=== PATIENT | female | born 1970 | race African-American/Black ===

== ENCOUNTER 2024-03-19 18:30 | Emergency (ER) | payer BC, SELFPAY ==
--- OUTSIDE RECORDS SUMMARY | 2024-03-19 18:33 | XMS REPORT | Continuity of Care Document ---
Author Name Unknown Address [address] [facility]. [address] [place] [address] [facility] Address [address] [facility] [place] [address] Care Team Providers Care Plastic Sheets Supervisor Name Role Phone ZENA TUCKER Primary Care Physician Jeffry Patel Attending Clinician JEFFRY COMER Attending Clinician Unavailable Unknown, Attending Attending Clinician Unavailab neris SMITH_GCBZW_Ross_Ana Attending Clinician Aminah Monsivais K Attending Clinician UnavailZENA Rodriguez Attending Clinician Unavailable Zena Tucker Attending Clinician [phone] Ismael Pruett Attending Clinician Unavail able STACY ANDREW Attending Clinician Un available NORMAN MITCHELL Attending Clinician Unavail able JAELYN FRAZIER Attending Clinician Unav ailable GC_GCBZW_Kadiyala_S Admitting Clinician Unavaila Aminah Chavez Admitting Clinician Unavaila ZENA Bishop Admitting Clinician Josey James Admitting Clinician Unavaila pietro Payers Payer Name Policy Type Policy Number Effective Date Expirati on Date Source Problems Condition Name Condition Details Condition Category Status Onset Date Resolution Date Last Treatment Date Treating Clinician Comments Source Morbid obesity with body mass index of 40.0-49.9 Morbid obesity with body mass index of 40.0-49.9 Disease Recurre nce 06-08 00:00: 00 [facility] Morbid obesity with body mass index of 50 or higher Morbid obesity with body mass index of 50 or higher Disease Active 06-08 00:00: 00 [facility] Allergies, Adverse Reactions, Alerts Allergy Name Allergy Type Status Severity Reaction(s) Onset Date Inactive Date Treating Clinician Comments Source No Known Allergie s DA Active U 2015-04 00:00: 00 [facility] NO KNOWN ALLERGIE S Drug Class Active [facility] Social History Social Habit Start Date Stop Date Quantity Comments Source [facility] function 2023-10-15 00:00:00 2023-10-15 00:00:00 [facility] Exposure to SARS-CoV-2 (event) 2021-06-15 00:00:00 2021-07-15 16:37:00 Not sure [facility] Sex assigned at 1970 00:00:00 1970 00:00:00 [facility] Smoking Status Start Date Stop Date Source Never smoked tobacco [facility] Medications Ordered Medication Name Filled Medication Name Start Date Stop Date Current Medication? Ordering Clinician Indication Dosage Frequency Signature (SIG) Comments Components Source ketorolac (TORADOL) injection 30 mg 10-14 22:10: 00 10-14 22:32 :00 No [id number] 30mg 30 mg, Intramuscu lar, ONCE, 1 dose, On 10/15/23 at 1715, Routine [facility] naproxen 500 mg tablet 10-14 00:00: 00 10-25 04:59 :00 No [id number] 500mg Take 1 tablet by mouth 2 (two) times daily with meals as needed for Pain (scale 4-6) for up to 10 days. [facility] ketorolac 10 mg tablet 10-05 00:00: 00 10-14 00:00 :00 No 10mg Take 1 tablet by mouth every 6 (six) hours as needed for Pain (scale 1-3). [facility] ondansetron (ZOFRAN ODT) 4 mg disintegrat ing tablet 10-05 00:00: 00 10-14 00:00 :00 No 4mg Take 1 tablet by mouth every 8 (eight) hours as needed for Nausea and Vomiting (N/V). [facility] cephALEXin (KEFLEX) 500 mg capsule 10-05 00:00: 00 10-14 00:00 :00 No 500mg Take 1 capsule by mouth 3 (three) times daily. [facility] methylPREDN ISolone 4 mg tablets 06-07 00:00: 00 10-14 00:00 :00 No 84mg Take 21 tablets by mouth SEE-INSTRU CTIONS. follow package directions [facility] traMADOL (ULTRAM) 50 mg tablet 2014-04 00:00: 00 10-14 00:00 :00 No 50mg Take 1 Tab by mouth every 6 (six) hours as needed for Pain (scale 4-6). [facility] Lisinopril, Bulk, 100 % Powd 01-17 23:37: 23 Yes [facility] Levothyroxi ne Sodium 100 % Powd 01-17 23:37: 23 Yes [facility] Lisinopril, Bulk, 100 % Powd 01-17 23:37: 23 Yes [facility] Levothyroxi ne Sodium 100 % Powd 01-17 23:37: 23 Yes [facility] Vital Signs Vital Name Observation Time Observation Value Comments Ana pulido Systolic blood pressure 2023-10-15 22:00:00 104 mm[Hg] [facility] Diastolic blood pressure 2023-10-15 22:00:00 75 mm[Hg] [facility] Heart rate 2023-10-15 22:00:00 86 /min [facility] Body temperature 2023-10-15 22:00:00 36.33 Ros [facility] Respiratory rate 2023-10-15 22:00:00 16 /min [facility] Body height 2023-10-15 22:00:00 160 cm [facility] Body weight 2023-10-15 22:00:00 97.523 kg [facility] BMI 2023-10-15 22:00:00 38.09 kg/m2 [facility] Oxygen saturation in Arterial blood by Pulse oximetry 2023-10-15 22:00:00 100 /min [facility] Procedures Procedure Date / Time Performed Performing Clinician Source XR KNEE 3 VW RIGHT 2023-10-15 22:31:26 Jeffry Comer [facility] XR HAND 3+ VW RIGHT 2023-10-15 22:25:27 Uriel Comer [facility] XR LUMBAR SPINE 3 VW 2021-12-29 15:23:00 Requisition, Paper [facility] XR CERVICAL SPINE 3 VW 2021-12-29 15:23:00 Requisition , Paper [facility] BI ULTRASOUND BREAST COMPLETE BILATERAL 2021-09-29 13:58:51 Requisition, Paper [facility] PATIENT FINANCIAL POLICY 2021-08-14 14:22:00 Doctor Unassigned, [place] [facility] NO SHOW OR MISSED APPOINTMENT POLICY ACKNOWLEDGEMENT 2021-08-14 14:21:40 Doctor Unassigned, [place] [facility] CONSENT/REFUSAL FOR DIAGNOSIS AND TREATMENT 2021-08-14 14:21:11 Doctor Unassigned, [place] [facility] ASSIGNMENT OF BENEFITS 2021-08-14 14:20:49 Docto r Unassigned, [place] [facility] Encounters Start Date/Time End Date/Time Encounter Type Admission Type Attending [facility] Facility Care Department Encounter ID Source 2023-10-15 17:11:58 2023-10-15 23:59:00 Hospital Encounter Jeffry Com[facility] [id number] [facility] 2023-10-15 17:11:58 2023-10-15 23:59:00 Outpatient R JEFFRY COMER [facility] [id number] [facility] 2023-10-15 17:11:58 2023-10-15 23:59:00 [facility] [id number] [id number] [facility] 2023-10-15 17:00:00 2023-10-15 17:22:12 Urgent Care Jeffry Comer Unknown, Attending [facility] [id number] [id number] [id number] [facility] 2023-02-23 00:00:00 2023-02-23 00:00:00 Outpatient GC_GCBZW_Ka donna_S [facility] [id number] [facility] 2022-01-21 12:56:00 2022-01-21 20:50:00 Inpatient KELLY Tigiststevegera Aminah [facility] MEDI.01 [id number] 97 [facility] 2021-12-29 09:55:07 2021-12-29 23:59:00 Outpatient R ZENA TUCKER [facility] [id number] [facility] 2021-12-29 09:55:07 2021-12-29 23:59:00 Hospital Encounter Zena Tucker [facility] [id number] [id number] [id number] [id number] [facility] 2021-10-12 18:56:00 2021-10-12 19:40:00 Emergency Ismael Levi [facility] LUISA [id number] [facility] 2021-10-12 18:56:00 2021-10-12 19:40:00 Emergency Ismael Levi [facility] [id number] [facility] 2021-10-12 17:27:00 2021-10-12 18:25:00 Emergency Alma Rosa [facility] [id number] [facility] 2021-09-29 07:37:57 2021-09-29 23:59:00 Outpatient ZENA [facility] RAD [id number] [facility] 2021-09-29 07:37:57 2021-09-29 23:59:00 Hospital Encounter [facility] [id number] [id number] [id number] [facility] 2021-08-14 09:21:57 2021-08-14 23:59:00 Outpatient R ZENA TUCKER [facility] [id number] [facility] 2021-08-14 09:21:57 2021-08-14 23:59:00 Hospital Encounter [facility] 1..840.114 [id number] [id number] [id number] [facility] 2021-04-30 23:32:00 2021-05-01 00:41:00 Emergency E [facility] [address] [facility] 2020-05-14 16:21:00 2020-05-14 18:25:00 Emergency E JAELYN FRAZIER [facility] [address] [facility] Results Test Description Test Time Test Comments Results Result Comments Source XR HAND 3+ VW RIGHT 00:46:11 ORDERING PROVIDER: JEFFRY COMER HISTORY: right hand injury TECHNIQUE: ?3 views of the right hand COMPARISON: None FINDINGS: No acute fracture or dislocation. [facility] XR KNEE 3 VW RIGHT 00:41:35 ORDERING PROVIDER: JEFFRY COMER HISTORY: right knee injury TECHNIQUE: ?Frontal and lateral views of the right knee COMPARISON: None FINDINGS: No acute fracture or dislocation. Small knee joint effusion. Minimaldegenerative changes of the anterior and medial compartments. [facility] Urine Specimen Type: Clean CatchURINALYSIS [id number] 12:45:00* Test Item Value Reference Range Interpretation Comme nts UA GLUCOSE DIPSTICK (test code = DGLUU) NEGATIVE mg/dL NEG UA BILIRUBIN DIPSTICK (test code = BILU) NEGATIVE mg/dL NEG UA KETONE DIPSTICK (test code = KETU) NEGATIVE mg/dL NEG UA SPECIFIC GRAVITY (test code = SGU) 1.025 SG 1.005-1.030 UA BLOOD DIPSTICK (test code = BAKARI) 1+ mg/DL NEG A UA PH DIPSTICK (test code = FRANCOIS) 5.5 pH UNITS 5.0-7.0 UA PROTEIN DIPSTICK (test code = PROU) NEGATIVE mg/dL NEG UA UROBILINIOGEN DIPSTICK (test code = URO) 0.2 mg/dL <2.0 UA NITRITE DIPSTICK (test code = ASAEL) NEGATIVE SCREEN NEG UA LEUKOCYTE ESTERASE DIPSTICK (test code = LEUU) NEGATIVE Leuk/mcL NEGATIVE Urine Specimen Type: Clean CatchCOVID 19 INHOUSE [id number] 12:44:00* Test Item Value Reference Range Interpretation Comme nts COVID 19 INHOUSE AG (test code = [id number]) NEGATIVE Negative Per bill poster installer , negative results should be treated aspresumptive and, if inconsistent with clinical signs andsymptoms or necessary for patient management, should betested with an alternative molecular assay. Negative resultsdo not preclude SARS-CoV-2 infection and should not be usedas the sole basis for patient management decisions. Negative results should be considered in the context of apatient's recent exposures, history, presence of clinicalsigns and symptoms consistent with COVID-19. BASIC METABOLIC [id number] 12:33:00* Test Item Value Reference Range Interpretation Comme nts SODIUM (test code = NA) 140 mmol/L 134-147 N POTASSIUM (test code = K) 3.6 mmol/L 3.4-5.0 N CHLORIDE (test code = CL) 103 mmol/L 100-108 N CARBON DIOXIDE (test code = CO2) 29 mmol/L 21-32 N ANION GAP (test code = GAP) 8.0 GAP calc 4.0-15.0 N GLUCOSE (test code = GLU) 96 MG/DL 70-110 N BLOOD UREA NITROGEN (test code = BUN) 11 MG/DL 7-18 N GLOMERULAR FILTRATION RATE (test code = GFR) >=60 max estimate estGFR >60 CREATININE (test code = CREAT) 0.6 MG/DL 0.6-1.0 N CALCIUM (test code = CA) 9.0 MG/DL 8.5-10.1 N PROTHROMBIN [id number] 12:28:00* Test Item Value Reference Range Interpretation Comme nts PT PATIENT (test code = PTP) 11.7 SECONDS 9.3-12.9 N INTERNATIONAL NORMAL RATIO (test code = INR) 1.03 INR Unit 0.8-1.2 N TARGET INR BY INDICATION Indication INR1. Prophylaxis of venous thrombosis 2.0 - 3.0 (orthopedic surgery), Prophylaxis of venous thrombosis (other than high-risk surgery), Treatment of Deep Vein Thrombosis/Pulmonary Embolism, Prevention of systemic embolism - Tissue heart valves, Acute Myocardial Infarction (to prevent systemic embolism), Valvular heart disease, Acute Myocardial Infarction (to prevent systemic embolism), Valvular heart disease, Atrial Fibrillation, Bileaflet mechanical valve in aortic position.2. Mechanical prosthetic valves (high risk), 2.5 - 3.5 Presence of Lupus Anticoagulant or Antiphospholipid Antibodies, Prevention of systemic embolism - Acute Myocardial Infarction (to prevent recurrent infarct). THROMBOPLASTIN TIME [id number] 12:28:00* Test Item Value Reference Range Interpretation Comme nts THROMBOPLASTIN TIME PARTIAL (test code = PTT) 33.1 SECONDS 26-35 N CBC W/AUTO [id number] 12:22:00* Test Item Value Reference Range Interpretation Comme nts WHITE BLOOD CELL (test code = WBC) 5.4 K/mm3 3.5-11.0 N RED BLOOD CELL (test code = RBC) 4.53 M/mm3 4.70-6.10 L HEMOGLOBIN (test code = HGB) 12.4 G/DL 10.4-14.9 N HEMATOCRIT (test code = HCT) 39.5 % 31.5-44.1 N MEAN CELL VOLUME (test code = MCV) 87.2 Fl 84.5-98.6 N MEAN CELL HGB (test code = MCH) 27.4 pg 27.0-34.2 N MEAN CELL HGB CONCETRATION (test code = MCHC) 31.4 G/DL 31.5-34.0 L RED CELL DISTRIBUTION WIDTH (test code = RDW) 14.0 SD 11.5-14.5 N PLATELET COUNT (test code = PLT) 311 K/mm3 150-450 N MEAN PLATELET VOLUME (test c ode = MPV) 9.60 fL 7.0-10.5 N NEUTROPHIL % (test code = NT%) 49.7 % 40-76 N IMMATURE GRANULOCYTE % (test code = IG%) 0.2 % 0.0-5.0 N LYMPHOCYTE % (test code = LY%) 38.4 % 20.5-51.1 N MONOCYTE % (test code = MO%) 8.0 % 1.7-9.3 N EOSINOPHIL % (test code = EO%) 2.8 % 0.0-6.0 N BASOPHIL % (test code = BA%) 0.9 % 0.0-2.0 N NUCLEATED RBC % (test code = NRBC%) 0.0 /100WBC% 0.0-1.0 N NEUTROPHIL # (test code = NT#) 2.7 K/mm3 1.8-7.6 N IMMATURE GRANULOCYTE # (test code = IG#) 0.01 x10 3/uL 0.00-0.03 N LYMPHOCYTE # (test code = LY#) 2.1 K/mm3 0.6-3.2 N MONOCYTE # (test code = MO#) 0.4 K/mm3 0.3-1.1 N EOSINOPHIL # (test code = EO#) 0.2 K/mm3 0.0-0.4 N BASOPHIL # (test code = BA#) 0.1 K/mm3 0.0-0.1 N NUCLEATED RBC # (test code = NRBC#) 0.0 K/mm3 0.0-0.1 N MANUAL DIFF REQUIRED (test c ode = MDIFF) NO DIFF/SCN CRITERIA Notes Date/Time Note Provider Source 2023-10-15 17:15:00 Left message with patient as discussed. [facility] 2022-01-31 17:41:00 [id number] [facility] [address] [place] [id number] PATIENT NAME: CHEVY FLORES ADMIT DATE: 01/21/22 ACCOUNT NO: [id number] ROOM NO: [facility] AGE: 51 REPORT TYPE: OPERATIVE REPORT SEX: F ADMITTING PHYSICIAN: Aminah Hawkins MD ATTENDING PHYSICIAN: Aminah Hawkins MD OPERATION DATE: PREOPERATIVE DIAGNOSIS: Rectocele, perineocele, vaginal vault prolapse. POSTOPERATIVE DIAGNOSIS: Rectocele perineocele, vaginal vault prolapse and posterior enterocele. PROCEDURE PERFORMED: Rectocele repair, posterior enterocele repair. Enterocele repair, sacrospinous ligament fixation, colpopexy, cystoscopy. SURGEON: Aminah Hawkins MD. TOUCH UP EDGER: Alma Delia Boston. ANESTHESIA: General with LMA. FINDINGS: -3, -3, -4, 5.5, 10, 8, 0, +2,na COMPLICATIONS: None. GRAFTS/IMPLANTS: No grafts. ESTIMATED BLOOD LOSS: 100 mL SPECIMENS: None. DRAINS: Ibarra catheter and vaginal packing. URINE OUTPUT: 100. APPROACH: Vaginal. WOUND CLASS: Clean, contaminated. DISPOSITION: Plan to discharge home. All counts were correct. BRIEF HISTORY AND PHYSICAL: The patient is a 51-year-old female with vaginal bulge symptoms increasing over time, referred here from urologist. Strains at times, not constipated. She is compliant with her diet using Detrol for overactive bladder, using local hormone therapy. Discussed about the options of pessary use, vaginal therapy with pelvic floor physical therapy and tightening and prolapse repair. She wants to proceed with vaginal repair. She is almost a PATIENT NAME: CHEVY FLORES stage III, the prolapse causing significant problems. Understanding the benefits and risks and complications of this procedure including dyspareunia and recurrent fistula, etc., she was consented and taken to the hospital. Possible occult colpopexy was discussed. No evidence of any benefit from using a graft augmented repair. She understands this. This would be more appropriate, if there has been recurrence. Efficacy recurrence rates were also reviewed with the patient clearly over her lifetime for the same prolapse or for other prolapses. DESCRIPTION OF PROCEDURE: After informed consent was verified, questions and answers were done to the satisfaction, the preop. She was given 3 g of Ancef, taken back to the OR. SCDs placed and started. General anesthesia was given when she was placed in a supine fashion, placed in dorsal lithotomy position using Yan stirrups. Arms were placed in an appropriate fashion. Position checked. Timeout done. Abdomen lower and vulva, vagina, perineum and medial aspects of the thighs were all prepped and draped in a sterile fashion. Ibarra was placed to drain the bladder and clamped and retracted superiorly. The examination of POP-Q was done and is as documented above. It was clear that there was a vaginal wall prolapse that needed a wall suspension. It did appeared to be a site specific defect where the top of the rectovaginal septum had been detached from the apex, so plan was to perform a repair of the attached rectovaginal septum to the apex and then do a sacrospinous fixation. After the hymenal edges were held with Allis clamps and the midline posterior one-third wall was in the midline, it was held with Allis clamps. Dilute vasopressin was injected both in the lateral aspect of the posterior wall in the distal one third and then the perineum; the midline and lateral cerrato and a triangular skin incision, placed on the perineum and an inverted triangle incision made with a 15 blade and epithelium excised leaving the connective tissues lateral edges were dissected to expose the components of the perineal body. A keshav-shaped incision was placed in the distal one third and once the epithelium was excised, the connective tissue was exposed. This was dissected all the way to the lateral sulci on both sides and distally to the level of the perineal body. There was a good perineocele. Rectovaginal exam was performed. Gloves were changed and the lateral perineal body structures were dissected and opened up exposing them to then be repaired at the end of the procedure. Dissection was carried superiorly going all the way to the level of the vaginal cuff, dissecting the posterior enterocele here and it from the rectovaginal septum and the sacrospinous ligament was cleaned up after entering the right perirectal space, palpating the ischial spine and clearing off from the rectum medially. Prolene Capio suture was taken and using the Capio SLIM suture was placed x2 in the middle of the sacrospinous ligament as well as slightly medial to it. These were held on clamps. The proximal posterior rectovaginal septum was cleaned up. Then posterior enterocele was then closed with help of 3-0 Monocryl in a continuous running pursestring fashion and closed and brought together. The proximal part of the rectovaginal septum was reattached with the help of continuous 2-0 PDS to the vaginal apex. The remnants of the uterosacral ligaments were picked up with Allis clamps and Prolene sutures from the sacrospinous ligament were placed through both and the perineal body was PATIENT NAME: CHEVY FLORES repaired with the help of 2-0 Vicryl sutures in an interrupted fashion in two layers. Once the perineal structures were all brought together closing the perineocele as well as lifting the perineal body up, this was sutured with a 0 PDS in a continuous running fashion to the posterior wall. Then, very slight trimming of the vaginal epithelium was performed in order for me to prevent a dog ear. Then, 2-0 Vicryl suture was started on the posterior vaginal epithelium after 2 sutures. This was held in clamp and the sacrospinous ligament was tied down with both stitches pulling the vagina all the way to the level of the sacrospinous ligament. Once this was done, there was an excellent lift at the vaginal area of the perineum. Then, the 2-0 Vicryl was used to finish closing the posterior vaginal wall to the level of the hymen in a continuous running fashion. There was excellent hemostasis then going to the lateral cerrato of the peritoneum, it was easy to close with the help of 3-0 Vicryl in a continuous running fashion in a subcuticular plane and then subcuticular closure with the help of 3-0 Vicryl. Then, the suture was tied all the way inside of the distal posterior wall. Rectal exam was performed. No evidence of any foreign body or trauma or perforation here. The sacrospinous suture also appeared to be secure. Cystoscopy was performed after removing the Ibarra. There was excellent jets of urine from both ureteric orifices and no evidence of any trauma or foreign body in the bladder. Bladder was then drained. Ibarra was replaced and attached to a Ibarra bag. Vaginal packing was placed and the patient was recovered from anesthesia after instrument, needle and sponge counts were correct at the end of the case. ESTIMATED BLOOD LOSS: 100 mL SPECIMENS: No specimens. Vaginal packing was done lightly and she was recovered from anesthesia and taken to PACU in a stable condition with a Ibarra in place. Family was debriefed. Dictated By: Aminah Hawkins MD Date Dictated: 01/31/2022 17:41:16 Date Transcribed: 02/01/2022 01:44:14 AALIYAH/KIA Receipt ID: [id number] Authenticated and Edited by Aminah Hawkins MD On 02/25/22 1:02:13 PM at 0103 PATIENT NAME: CHEVY FLORES [facility] 2022-01-21 18:32:00 [facility] ([facility]) Brief Op Note REPORT#:[id number] REPORT STATUS: Signed DATE:01/21/22 TIME:1831 PATIENT: CHEVY FLORES UNIT #: [id number] ROOM/BED: [place] [address] : 72 AGE: 51 SEX: F ATTEND: Aminah Hakwins MD ADM AUTHOR: Aminah Hawkins MD * ALL edits or amendments must be made on the electronic/computer document * Op/Inv Proc Note - Brief Pre-procedure diagnosis: rectocele perineocele, vault prolapse Post-procedure diagnosis: same as pre procedure dx, posterior enterocele Procedures performed: Rectocele and posterior enterocele and perineocele repairs, Rt SSLF colpopexy Cystoscopy Primary Surgeon: ross Protection Engineer(s): bar boston Anesthesia: general anesthesia Findings: -3/-3/-4/5.5/thin/8/0/+2/na Complications: none Estimated blood loss in ml's: 100 Specimens removed/altered: none Drain(s): Ibarra Catheter Placed Urine output: 100 Approach: vg Wound class: clean-contaminated Disposition: plan to D/C home Counts: Sponge count: correct Instrument count: correct Needle count: correct at 1841 RPT #: [id number] END OF REPORT [facility] 2021-10-12 19:34:00 [facility] ([facility]) EMERGENCY PROVIDER REPORT REPORT#:[id number] REPORT STATUS: Signed DATE:10/12/21 TIME: 1933 PATIENT: CHEVY FLORES UNIT #: [id number] ROOM/BED: AGE: 50 SEX: F PCP PHYS: Josey Tucker MD SERVICE AUTHOR: Ismael Pruett MD * ALL edits or amendments must be made on the electronic/computer document * HPI-General Illness Free Text HPI Notes Free Text HPI Notes 50 yrs old female here to check her old scar out, pt thought her scar was reopening. No bleeding. General Confirmed Patient Yes Patient Type New patient Initial Greet Date/Time 10/12/211933 Pt in Research Study? NO Presentation Chief Complaint wound check Hx Obtained From Patient Sudden in Onset? Yes Onset Occurred Just prior to arrival Symptom Duration Since onset Progression since Onset Gradually improving Location Abdomen Radiation No: Does not radiate. Severity: Current No pain currently Associated Other Pt denies other symptoms Exacerbated by Moving affected area Context Immunization Status General All up to date Recent Healthcare Recent doctor visit, Recent testing Similar Sx Previous Yes Review of Systems ROS Statements All systems rev neg except as marked. Complete sys rev neg except as marked. Past Medical History - Adult Stated Complaint SCARS REOPENING,BLEEDING Allergies Coded Allergies: No Known Allergies (03/16/16) Home Medications Reported Medications LEVOTHYROXINE (LEVOTHROID) 150 MCG PO DAILY ACETAMINOPHEN (TYLENOL) LISINOPRIL (ZESTRIL) 40 MG PO DAILY ROSUVASTATIN (CRESTOR) 10 MG PO DAILY Review of Nursing Notes Rev avail, and agree Smoking status for patients 13 years old or older: Never Smoker Physical Exam Vital Signs Vital Signs First Documented: Result Date Time Pulse Ox 100 10/12 1922 B/P 121/79 10/12 1922 B/P Mean 93 10/12 1922 O2 Delivery Room air 10/12 1922 Temp 36.8 10/12 1922 Pulse 85 10/12 1922 Resp 18 10/12 1922 Last Documented: Result Date Time Pulse Ox 100 10/12 1922 B/P 121/79 10/12 1922 B/P Mean 93 10/12 1922 O2 Delivery Room air 10/12 1922 Temp 36.8 10/12 1922 Pulse 85 10/12 1922 Resp 18 10/12 1922 Review of Vital Signs Reviewed Physical Exam General/Const General/Const Awake, Alert, Well appearing MS Head Head Normocephalic Ears/Nose/Throat Ears/Nose/Throat Airway patent, Mucous membranes moist, Pharynx NL Resp/Chest Respiratory/Chest Breath sounds NL, Breath sounds = bilat, No respiratory distress, No rales, No rhonchi, No wheezing Cardiovascular Cardiovascular Heart rate NL, Regular rhythm, Heart sounds NL, Cap refill not delayed, Peripheral circulation NL Abdomen/GI Abdomen/GI Soft, Non-tender, No guarding, No rebound Text/Dict Notes site intact, dry, no bleeding. Crease of the large belly irritated, but no bleeding. Lymphatic Lymphatic No gross adenopathy MS Upper Extrem Upper Extremity/MS Inspection NL, No swelling, Non-tender, No erythema, No deformity, Neurologic intact, Vascular intact, No clubbing/cyanosis MS Lower Extrem Lower Ext/Pelvis/MS Inspection NL, No swelling, Non-tender, No erythema, No deformity, Neurologic intact, Vascular intact, No edema Skin Skin Color NL, Warm, Dry, Turgor NL Neurologic Neurologic Oriented X3, Speech NL, No motor deficits, No sensory deficits Psychiatric Psychiatric Affect NL, Mood NL, Thought content NL Patient Discharge Departure Vital Signs/Condition Vital Signs First Documented: Result Date Time Pulse Ox 100 10/12 1922 B/P 121/79 10/12 1922 B/P Mean 93 10/12 1922 O2 Delivery Room air 10/12 1922 Temp 36.8 10/12 1922 Pulse 85 10/12 1922 Resp 18 10/12 1922 Last Documented: Result Date Time Pulse Ox 100 10/12 1922 B/P 121/79 10/12 1922 B/P Mean 93 10/12 1922 O2 Delivery Room air 10/12 1922 Temp 36.8 10/12 1922 Pulse 85 10/12 1922 Resp 18 10/12 1922 All vital signs available at the time of this entry have been reviewed. Condition Stable, Improved Clinical Impression Clinical Impression Primary Impression: Visit for wound check Time of Impression 1933 Disposition Decision Discharge )( Discharged to Home Yes )( Time 1933 )( Date 10/12/21 Discharge/Care Plan Counseled Regarding Diagnosis, Lab results, Imaging studies, Prescriptions, Need for follow-up, When to return to ED Rx Drug Database Reviewed Yes (Auto) Prescriptions Current Visit Scripts CEPHALEXIN (KEFLEX) 500 MG PO Q12H CEPHALEXIN (KEFLEX) 500 MG PO Q12H #20 CAPS Prescriptions Reviewed Risks, Benefits, Alternative treatment Patient Instructions ED Post Op Wound Check, General Referrals Provider Referral: Charlie Tate MD Address: [address] [address] Departure Forms WORK/SCHOOL EXCUSE VARIABLE WORK/SCHOOL EXCUSE-CAREGIVER Discharge Note I have spoken with the patient and/or caregivers. I have explained the patient's condition, diagnoses and treatment plan based on the information available to me at this time. I have answered the patient's and/or caregiver's questions and addressed any concerns. The patient and/or caregivers have as good an understanding of the patient's diagnosis, condition and treatment plan as can be expected at this point. The vital signs have been stable. The patient's condition is stable and appropriate for discharge from the emergency department. The patient will pursue further outpatient evaluation with the primary care physician or other designated or consulting physician as outlined in the discharge instructions. The patient and/or caregivers are agreeable to this plan of care and follow-up instructions have been explained in detail. The patient and/or caregivers have received these instructions in written format and have expressed an understanding of the discharge instructions. The patient and/or caregivers are aware that any significant change in condition or worsening of symptoms should prompt an immediate return to this or the closest emergency department or a call to 911. Quality Measures BP F/U for HTN F/u with PCP/other doc Preg Test for Women w/Abd Pain Female age 14-50 Smoking Cessation Screened, non user Tobacco Screening/Cessation 18 years or older, Denies tobacco use at 0131 RPT #:[id number] END OF REPORT [facility]
[2024-03-19] MEDS ORDERED: IBUPROFEN 400 MG TAB ONE (19:17)
[2024-03-19] MEDS ORDERED: ACETAMINOPHEN 500 MG TAB ONE (19:17)
--- NOTE | 2024-03-19 19:38 | ER ---
Nurse's Notes [facility] Name: Grisel Jhaveri Age: 53 yrs Sex: Female : 1970 Arrival Date: 03/19/2024 Time: 18:30 Bed 15 Private MD: Diagnosis: Pain in right knee Presentation: 03/19 18:41 Chief complaint: Patient states: right knee started to hurt Tuesday. Pain has gotten tm6 worse. It is swollen and it pops. Coronavirus screen: Client denies travel out of the [place] in the last 14 days. Ebola Screen: Patient negative for fever greater than or equal to 101.5 degrees Fahrenheit, and additional compatible Ebola Virus Disease symptoms Patient denies exposure to infectious person. Patient denies travel to an Ebola-affected area in the 21 days before illness onset. No symptoms or risks identified at this time. Initial Sepsis Screen: Does the patient meet any 2 criteria? No. Patient's initial sepsis screen is negative. Does the patient have a suspected source of infection? No. Patient's initial sepsis screen is negative. 18:41 Method Of Arrival: Ambulatory tm6 18:43 Risk Assessment: Do you want to hurt yourself or someone else? Patient reports no tm6 desire to harm self or others. Onset of symptoms was March 17, 2024. 18:43 Acuity: ERIKA 4 tm6 Triage Assessment: 18:43 General: Appears in no apparent distress. Behavior is calm, cooperative. Pain: tm6 Complains of pain in right knee Pain currently is 6 out of 10 on a pain scale. Pain began 2-3 days ago. EENT: No signs and/or symptoms were reported regarding the EENT system. Neuro: Level of Consciousness is awake, alert, obeys commands, Oriented to person, place, time, situation. Cardiovascular: Patient's skin is warm and dry. Respiratory: Airway is patent Respiratory effort is even, unlabored, Respiratory pattern is regular, symmetrical. GI: No signs and/or symptoms were reported involving the gastrointestinal system. Abdomen is round non-distended. : No signs and/or symptoms were reported regarding the genitourinary system. Derm: No signs and/or symptoms reported regarding the dermatologic system. Musculoskeletal: Swelling present in right knee Reports pain in right knee since Tuesday. CONTROL PANEL TESTER: 20:07 LMP N/A - Post-menopause, Not me1 Historical: - Allergies: 18:42 No Known Allergies; tm6 - PMHx: 18:42 Hypothyroidism; tm6 - PSHx: 18:42 section; Thyroidectomy; Total abdominal hysterectomy; reconstruction of tm6 bladder; - Immunization history:: Client reports receiving the 2nd dose of the Covid vaccine. - Infectious Disease History:: Denies. - Social history:: Smoking status: Patient denies any tobacco usage or history of. Screenin:25 [facility] ED Fall Risk Assessment (Adult) History of falling in the last 3 months, me1 including since admission No falls in past 3 months (0 pts) Confusion or Disorientation No (0 pts) Intoxicated or Sedated No (0 pts) Impaired Gait Yes (1 pt) Mobility Assist Device Used No (0 pt) Altered Elimination No (0 pt) Score/Fall Risk Level 0 - 2 = Low Risk Maintained a safe environment, Provided non-skid footwear, Hourly rounding (assess needs \T\ fall precautionary measures) done. Abuse screen: Denies threats or abuse. Nutritional screening: No deficits noted. Tuberculosis screening: No symptoms or risk factors identified. Assessment: 19:25 General: Appears uncomfortable, well groomed, well developed, well nourished, Behavior me1 is calm, cooperative, appropriate for age, Reports right knee started to hurt Tuesday. Pain has gotten worse. It is swollen and it pops. Pain: Complains of pain in right knee Pain does not radiate. Pain currently is 7 out of 10 on a pain scale. Quality of pain is described as throbbing, Pain began suddenly, Is continuous. Neuro: Level of Consciousness is awake, alert, obeys commands, Oriented to person, place, time, situation, Appropriate for age. Cardiovascular: Patient's skin is warm and dry. Respiratory: Airway is patent Respiratory effort is even, unlabored, Respiratory pattern is regular, symmetrical. GI: No signs and/or symptoms were reported involving the gastrointestinal system. : No signs and/or symptoms were reported regarding the genitourinary system. EENT: No signs and/or symptoms were reported regarding the EENT system. Derm: Skin is intact, is healthy with good turgor, Skin is pink, warm \T\ dry. Musculoskeletal: Circulation, motion, and sensation intact. Range of motion: limited in right knee Reports pain in right knee since Tuesday. Vital Signs: 18:40 BP 135 / 99; Pulse 85; Resp 17; Temp 98(O); Pulse Ox 100% on R/A; MAP 109 mmHg; Weight tm6 99.79 kg; Height 5 ft. 3 in. ; Pain 6/10; 19:46 BP 134 / 89; Pulse 87; Resp 16; Temp 98.4; Pulse Ox 97% ; me1 18:40 Body Mass Index 38.97 (99.79 kg, 160.02 cm) tm6 18:40 Pain Scale: Adult tm6 ED Course: 18:34 Patient arrived in ED. im 18:35 Tamela Klein PA-C is PHCP. sb4 18:35 Ponce Osborne MD is Attending Physician. sb4 18:36 PHCP role handed off by Tamela Klein PA-C cp 18:36 Scott Sevilla PA is PHCP. cp 18:43 Triage completed. tm6 18:43 Arm band placed on right wrist. tm6 19:19 Trang Arauz, JERSON is Primary Nurse. me1 19:20 XRAY Knee RIGHT 3 view In Process Unspecified. EDMS 19:25 Patient has correct armband on for positive identification. Bed in low position. Call me1 light in reach. Side rails up X2. Provided Education on: POC. Verbalized understanding. . Client placed on continuous cardiac and pulse oximetry monitoring. NIBP monitoring applied. Pulse ox on. NIBP on. 19:25 No provider procedures requiring assistance completed. Patient did not have IV access me1 during this emergency room visit. 19:37 Rohan Ann MD is Referral Physician. cp Administered Medications: 19:24 Drug: Ibuprofen PO 800 mg PO once Route: PO; me1 19:47 Follow up: Response: No adverse reaction; Pain is decreased me1 19:24 Drug: Acetaminophen PO 1000 mg PO once Route: PO; me1 19:47 Follow up: Response: No adverse reaction; Pain is decreased me1 Medication: 19:25 VIS not applicable for this client. me1 Outcome: 19:37 Discharge ordered by . cp 20:07 Discharged to home with crutches, me1 20:07 Condition: stable 20:07 Discharge instructions given to patient, Instructed on discharge instructions, follow up and referral plans. medication usage, Demonstrated understanding of instructions, follow-up care, medications, Prescriptions given X 1, 20:07 Patient left the ED. me1 Signatures: Dispatcher [employer] EDMS Scott Sevilla PA PA cp Brown, Sophia, PA-C PA-C sb4 Deirdre Mason Michelle, RN RN me1 Ana Fajardo RN RN tm6 Corrections: (The following items were deleted from the chart) 18:43 18:42 PMHx: None; tm6 tm6 19:24 18:41 Chief complaint: Patient states: right knee started to hurt Tuesday. Pain has me1 gotten worse. It is swollen and it pops tm6
--- NOTE | 2024-03-19 19:38 | EDPHYS ---
Physician Documentation [facility] Name: Grisel Jhaveri Age: 53 yrs Sex: Female : 1970 Arrival Date: 03/19/2024 Time: 18:30 Bed 15 Private MD: ED Physician Ponce Osborne HPI: 03/19 18:50 This 53 yrs old Black Female presents to ER via Ambulatory with complaints of Knee Pain cp - right. 18:50 The patient presents with pain, that is acute. cp 18:50 The complaints affect the right knee. cp HAND EDGER: 20:07 LMP N/A - Post-menopause, Not me1 Historical: - Allergies: 18:42 No Known Allergies; tm6 - PMHx: 18:42 Hypothyroidism; tm6 - PSHx: 18:42 section; Thyroidectomy; Total abdominal hysterectomy; reconstruction of tm6 bladder; - Immunization history:: Client reports receiving the 2nd dose of the Covid vaccine. - Infectious Disease History:: Denies. - Social history:: Smoking status: Patient denies any tobacco usage or history of. ROS: 18:55 MS/extremity: Positive for decreased range of motion, pain, of the right knee, Negative cp for injury or acute deformity, paresthesias, 18:55 Constitutional: Negative for body aches, chills, fever, cp Exam: 19:00 Constitutional: The patient appears in no acute distress, alert, awake, non-toxic, well cp developed, well nourished, overweight 19:00 Head/Face: Normocephalic, atraumatic. cp 19:00 Neck: ROM/movement: is normal, is supple, without pain, no range of motions limitations, 19:00 Cardiovascular: Rate: normal, 19:00 Respiratory: the patient does not display signs of respiratory distress, Respirations: normal, no use of accessory muscles, no retractions, 19:00 Abdomen/GI: Inspection: abdomen appears normal, Palpation: abdomen is soft and non-tender, in all quadrants, 19:00 Back: pain, is absent, ROM is normal, 19:00 Musculoskeletal/extremity: Extremities: noted in the right knee: medial and lateral joint line tenderness, mild anterior knee swelling, pain with passive ROM, Vital Signs: 18:40 BP 135 / 99; Pulse 85; Resp 17; Temp 98(O); Pulse Ox 100% on R/A; MAP 109 mmHg; Weight tm6 99.79 kg; Height 5 ft. 3 in. ; Pain 6/10; 19:46 BP 134 / 89; Pulse 87; Resp 16; Temp 98.4; Pulse Ox 97% ; me1 18:40 Body Mass Index 38.97 (99.79 kg, 160.02 cm) tm6 18:40 Pain Scale: Adult tm6 MDM: 18:45 Medical Screening Exam initiated cp 19:00 Differential diagnosis: closed fracture, tendonitis, effusion. cp 19:36 Data reviewed: vital signs, nurses notes, radiologic studies, plain films, and as a cp result, I will discharge patient. 19:36 I considered the following discharge prescriptions or medication management in the cp emergency department Medications were administered in the Emergency Department. See MAR. Independent interpretation of the following test(s) in the Emergency Department X-Ray: My interpretation is images of right knee negative for fracture. Counseling: I had a detailed discussion with the patient and/or guardian regarding the historical points, exam findings, and any diagnostic results supporting the discharge/admit diagnosis, radiology results, the need for outpatient follow up, a orthopedic surgeon, to return to the emergency department if symptoms worsen or persist or if there are any questions or concerns that arise at home. Response to treatment: the patient's symptoms have mildly improved after treatment, and as a result, I will discharge patient. 03/19 18:46 Order name: XRAY Knee RIGHT 3 view; Complete Time: 19:58 cp 03/19 19:58 Interpretation: Report reviewed. cp 03/19 19:35 Order name: Savage wrap-joint; Complete Time: 19:54 cp 03/19 19:35 Order name: Crutches; Complete Time: 19:54 cp Administered Medications: 19:24 Drug: Ibuprofen PO 800 mg PO once Route: PO; me1 19:47 Follow up: Response: No adverse reaction; Pain is decreased me1 19:24 Drug: Acetaminophen PO 1000 mg PO once Route: PO; me1 19:47 Follow up: Response: No adverse reaction; Pain is decreased me1 Disposition: 03/20 12:10 Chart complete. cp Disposition Summary: 03/19/24 19:37 Discharge Ordered Notes: Location: Home cp Problem: new cp Symptoms: have improved cp Condition: Stable cp Diagnosis - Pain in right knee cp Followup: cp - With: Rohan Ann MD - When: 1 week - Reason: pain continues Discharge Instructions: - Discharge Summary Sheet cp - Acute Knee Pain, Adult cp Forms: - Medication Reconciliation Form cp - Antibiotic Education cp - Prescription Opioid Use cp - Patient Portal Instructions cp - Leadership Thank You Letter cp Prescriptions: - Anaprox DS 550 mg Oral Tablet - take 1 tablet ORAL route every 12 hours As needed; 20 tablet; Refills: 0, cp Product Selection Permitted Signatures: Dispatcher [employer] EDMS Scott Sevilla PA PA cp Trang Arauz, RN RN me1 Ana Fajardo RN RN tm6 Corrections: (The following items were deleted from the chart) 03/19 18:43 18:42 PMHx: None; tm6 tm6
--- NOTE | 2024-03-19 19:52 | RAD REPORT ---
EXAM: XR Knee Right 3 View HISTORY: [facility] MAIN PAIN Bed Name: [email or web address] COMPARISON: None TECHNIQUE: 3 views of the right knee were obtained. FINDINGS: Mild knee effusion is seen. There is no evidence of acute fracture or dislocation. No sign ificant degenerative changes are seen. No soft tissue swelling or other soft tissue abnormality is present. IMPRESSION: Mild knee joint effusion. No evidence of acute osseous abnormality.
[2024-03-20 01:27] VITALS: BP 134/89; TEMP 98.4; O2SAT 97
== END 2024-03-19 20:07 | disposition home or self-care (01) ==
LOC: ER 18:30
DX: M25.561 Pain in right knee (principal); E03.9 Hypothyroidism, unspecified
CPT/HCPCS: 99284

== ENCOUNTER 2024-05-28 15:39 | Emergency (ER) | payer BC ==
--- OUTSIDE RECORDS SUMMARY | 2024-05-28 15:42 | XMS REPORT | Continuity of Care Document ---
Author Name Unknown Address [address] [facility] [address] [place] [address] [facility] thconnect Address [address] [facility] [address] [place] [address] Care Team Providers Care International Relations Teacher Name Role Phone ZENA TUCKER Primary Care Physician Jeffry Patel Attending Clinician [phone] JEFFRY COMER Attending Clinician Unavailable Unknown, Attending Attending Clinician Unavailab cordon [email or web address]_S Attending Clinician Aminah Monsivais Attending Clinician ZENA Diaz Attending Clinician Unavailable Zena Tucker Attending Clinician [phone] Ismael Pruett Attending Clinician Unavail able STACY ANDREW Attending Clinician Un available NORMAN MITCHELL Attending Clinician Unavail able JAELYN FRAZIER Attending Clinician Misael ailable [email or web address]_S Admitting Clinician Rejia pietro Hawkins, Aminah Stephenson Admitting Clinician Unavaila ZENA Bishop Admitting Clinician Josey James Admitting Clinician Unavaila ble Payers Payer Name Policy Type Policy Number Effective Date Expirati on Date Source Problems Condition Name Condition Details Condition Category Status Onset Date Resolution Date Last Treatment Date Treating Clinician Comments Source Morbid obesity with body mass index of 40.0-49.9 Morbid obesity with body mass index of 40.0-49.9 Disease Recurre nce 06-08 00:00: 00 [facility] Morbid obesity with body mass index of 50 or higher Morbid obesity with body mass index of 50 or higher Disease Active 06-08 00:00: 00 [facility] Allergies, Adverse Reactions, Alerts Allergy Name Allergy Type Status Severity Reaction(s) Onset Date Inactive Date Treating Clinician Comments Source No Known Allergie s DA Active U 2015-04 00:00: 00 [facility] NO KNOWN ALLERGIE S Drug Class Active [facility] Social History Social Habit Start Date Stop Date Quantity Comments Source [facility] of Social function 2023-10-15 00:00:00 2023-10-15 00:00:00 [facility] Exposure to SARS-CoV-2 (event) 2021-06-15 00:00:00 2021-07-15 16:37:00 Not sure [facility] Sex assigned at 1970 00:00:00 1970 00:00:00 [facility] Smoking Status Start Date Stop Date Source Never smoked tobacco [facility] Medications Ordered Medication Name Filled Medication Name Start Date Stop Date Current Medication? Ordering Clinician Indication Dosage Frequency Signature (SIG) Comments Components Source ketorolac (TORADOL) injection 30 mg 10-14 22:10: 00 10-14 22:32 :00 No [id number] 30mg 30 mg, Intramuscu lar, ONCE, 1 dose, On 10/15/23 at 1715, Routine [facility] naproxen 500 mg tablet 10-14 00:00: 00 10-25 04:59 :00 No [id number] 500mg Take 1 tablet by mouth 2 (two) times daily with meals as needed for Pain (scale 4-6) for up to 10 days. [facility] ketorolac 10 mg tablet 10-05 00:00: 00 10-14 00:00 :00 No 10mg Take 1 tablet by mouth every 6 (six) hours as needed for Pain (scale 1-3). [facility] ondansetron (ZOFRAN ODT) 4 mg disintegrat ing tablet 10-05 00:00: 00 10-14 00:00 :00 No 4mg Take 1 tablet by mouth every 8 (eight) hours as needed for Nausea and Vomiting (N/V). [facility] cephALEXin (KEFLEX) 500 mg capsule 10-05 00:00: 00 10-14 00:00 :00 No 500mg Take 1 capsule by mouth 3 (three) times daily. [facility] methylPREDN ISolone 4 mg tablets 06-07 00:00: 00 10-14 00:00 :00 No 84mg Take 21 tablets by mouth SEE-INSTRU CTIONS. follow package directions [facility] traMADOL (ULTRAM) 50 mg tablet 2014-04 00:00: 00 10-14 00:00 :00 No 50mg Take 1 Tab by mouth every 6 (six) hours as needed for Pain (scale 4-6). [facility] Lisinopril, Bulk, 100 % Powd 01-17 23:37: 23 Yes [facility] Levothyroxi ne Sodium 100 % Powd 01-17 23:37: 23 Yes [facility] Lisinopril, Bulk, 100 % Powd 01-17 23:37: 23 Yes [facility] Levothyroxi ne Sodium 100 % Powd 0 01-17 23:37: 23 Yes [facility] Vital Signs Vital Name Observation Time Observation Value Comments S ource Diastolic blood pressure 2023-10-15 22:00:00 75 mm[Hg] [facility] Heart rate 2023-10-15 22:00:00 86 /min [facility] Body temperature 2023-10-15 22:00:00 36.33 Ros [facility] Respiratory rate 2023-10-15 22:00:00 16 /min [facility] Body height 2023-10-15 22:00:00 160 cm [facility] Body weight 2023-10-15 22:00:00 97.523 kg [facility] BMI 2023-10-15 22:00:00 38.09 kg/m2 [facility] Oxygen saturation in Arterial blood by Pulse oximetry 2023-10-15 22:00:00 100 /min [facility] Systolic blood pressure 2023-10-15 22:00:00 104 mm[Hg] [facility] Procedures Procedure Date / Time Performed Performing Clinician Source XR KNEE 3 VW RIGHT 2023-10-15 22:31:26 Jeffry Comer [facility] XR HAND 3+ VW RIGHT 2023-10-15 22:25:27 Uriel Comer [facility] XR LUMBAR SPINE 3 VW 2021-12-29 15:23:00 Requisition, Paper [facility] XR CERVICAL SPINE 3 VW 2021-12-29 15:23:00 Requisition , Paper [facility] BI ULTRASOUND BREAST COMPLETE BILATERAL 2021-09-29 13:58:51 Requisition, Paper [facility] PATIENT FINANCIAL POLICY 2021-08-14 14:22:00 Doctor Unassigned, Ar[place] [facility] NO SHOW OR MISSED APPOINTMENT POLICY ACKNOWLEDGEMENT 2021-08-14 14:21:40 Doctor Unassigned, [place] [facility] CONSENT/REFUSAL FOR DIAGNOSIS AND TREATMENT 2021-08-14 14:21:11 Doctor Unassigned, [place] [facility] ASSIGNMENT OF BENEFITS 2021-08-14 14:20:49 Docto r Unassigned, [place] [facility] Encounters Start Date/Time End Date/Time Encounter Type Admission Type Attending Clinicians Care Facility Care Department Encounter ID Source 2023-10-15 17:11:58 2023-10-15 23:59:00 Hospital Encounter Jeffry Comer [facility] [id number] [facility] 2023-10-15 17:11:58 2023-10-15 23:59:00 Outpatient R JEFFRY COMER [facility] [id number] [facility] 2023-10-15 17:11:58 2023-10-15 23:59:00 Hospital Encounter Jeffry Comer [facility] [id number] [facility] 2023-10-15 17:00:00 2023-10-15 17:22:12 Urgent Care Jeffry Comer Unknown, Attending [facility] [id number] [facility] 2023-02-23 00:00:00 2023-02-23 00:00:00 Outpatient GC_GCBZW_Ka donna_S PRIV PRIV [id number] [facility] 2022-01-21 12:56:00 2022-01-21 20:50:00 Inpatient Aminah Thacker [facility].01 [id number] [facility] 2021-12-29 09:55:07 2021-12-29 23:59:00 Outpatient ZENA FRANCISCO [facility] [id number] [facility] 2021-12-29 09:55:07 2021-12-29 23:59:00 Hospital Encounter Zena Tucker [facility] [id number] [facility] 2021-10-12 18:56:00 2021-10-12 19:40:00 Emergency Ismael Levi [facility] [id number] [facility] 2021-10-12 18:56:00 2021-10-12 19:40:00 Emergency Ismael Levi [facility] [id number] [facility] 2021-10-12 17:27:00 2021-10-12 18:25:00 Emergency E STACY ANDREW [id number] [facility] 2021-09-29 07:37:57 2021-09-29 23:59:00 Outpatient R GARRETT [facility] [id number] [facility] 2021-09-29 07:37:57 2021-09-29 23:59:00 Hospital Encounter Garrett Zena [facility] [id number] [facility] 2021-08-14 09:21:57 2021-08-14 23:59:00 Outpatient R ZENA TUCKER [facility] [id number] [facility] 2021-08-14 09:21:57 2021-08-14 23:59:00 Hospital Encounter Garrett [facility] [id number] [facility] 2021-04-30 23:32:00 2021-05-01 00:41:00 Emergency E NORMAN MITCHELL FB FB [id number] [facility] 2020-05-14 16:21:00 2020-05-14 18:25:00 Emergency E JAELYN FRAZIER [facility] [id number] [facility] Results Test Description Test Time Test Comments Results Result Comments Source XR HAND 3+ VW RIGHT 00:46:11 ORDERING PROVIDER: JEFFRY COMER HISTORY: right hand injury TECHNIQUE: ?3 views of the right hand COMPARISON: None FINDINGS: No acute fracture or dislocation. [facility] XR KNEE 3 VW RIGHT 00:41:35 ORDERING PROVIDER: JEFFRY COMER HISTORY: right knee injury TECHNIQUE: ?Frontal and lateral views of the right knee COMPARISON: None FINDINGS: No acute fracture or dislocation. Small knee joint effusion. Minimaldegenerative changes of the anterior and medial compartments. [facility] Urine Specimen Type: Clean CatchURINALYSIS [id number] 12:45:00* Test Item Value Reference Range Interpretation [...] Urine Specimen Type: Clean CatchCOVID 19 INHOUSE [id number] 12:44:00* Test Item Value Reference Range Interpretation Comme nts COVID 19 INHOUSE AG (test code = [id number]) NEGATIVE Negative Per outsole cutter machine , negative results should be treated aspresumptive [...] and symptoms consistent with COVID-19. BASIC METABOLIC [id number] 12:33:00* Test Item Value Reference Range Interpretation [...] = CA) 9.0 MG/DL 8.5-10.1 N PROTHROMBIN [id number] 12:28:00* Test Item Value Reference Range Interpretation [...] Infarction (to prevent recurrent infarct). THROMBOPLASTIN TIME [id number] 12:28:00* Test Item Value Reference Range Interpretation Comme nts THROMBOPLASTIN TIME PARTIAL (test code = PTT) 33.1 SECONDS 26-35 N CBC W/AUTO [id number] 12:22:00* Test Item Value Reference Range Interpretation [...]
--- NOTE | 2024-05-28 16:33 | RAD REPORT ---
EXAM: Chest Single View HISTORY: CHEST PAIN COMPARISON: None. FINDINGS: LUNGS/PLEURA: The lungs are clear. No pleural effusions or pneumothorax. No pulmonary edema. MEDIASTINUM: The mediastinal silhouette is within normal limits. CARDIAC: The cardiac silhouette is within normal limits. UPPER ABDOMEN: No significant abnormality. BONES: No acute abnormality. LINES/TUBES/OTHER: N/A IMPRESSION: No evidence of acute cardiopulmonary disease.
[2024-05-28] MEDS ORDERED: DIAZEPAM 10 MG/2 ML INJ SYRINGE ONE (17:20)
[2024-05-28 17:57] LABS: Absolute Basophils 0.1 K/uL (0-0.5); Absolute Eosinophils 0.1 K/uL (0-0.5); Absolute Lymphocytes (CBC) 2.5 K/uL (0.7-4.9); Absolute Monocytes 0.5 K/uL (0.1-1.3); Absolute Neutrophil 4.3 K/uL (1.8-8.0); Hematocrit 41.2 % (36.0-45.0); Hemoglobin 13.8 g/dL (12.0-15.0); Lymphocytes % 33.4 % (15.3-44.8); MCH 29.2 pg (27.0-35.0); MCHC 33.6 g/dL (32.0-36.0); MPV 7.9 fL (7.6-11.3); Monocytes % 6.2 % (3.3-12.3); Neutrophils % 58.4 % (41.7-73.7); Nucleated Red Blood Cells % 0.1 % (0-0); Platelets 318 thou/uL (152-406); RBC Red Blood Cell Count 4.74 M/uL (3.86-4.86); Red Cell Distribution Width 13.9 % (12.1-15.2)
[2024-05-28 18:16] LABS: PT Prothrombin Time 11.9 SECONDS (9.4-12.5); Protime INR 1.13
[2024-05-28 18:33] LABS: Anion Gap 8.1 mEq/L (5.0-15.0); Potassium 3.1 mEq/L (3.5-5.1); Troponin High Sensitivity 3.3 pg/mL (<58.9)
--- NOTE | 2024-05-28 18:46 | EDPHYS ---
Physician Documentation [facility] Name: Grisel Jhaveri Age: 53 yrs Sex: Female : 1970 Arrival Date: 05/28/2024 Time: 15:39 Bed 8 Private MD: ED Physician Ponce Osborne HPI: 05/28 16:01 This 53 yrs old Black Female presents to ER via EMS with complaints of panic attack. ec2 16:01 Patient arrives today due to concern for a panic attack after being in a verbal ec2 confrontation with family. Reports chest tightness and want to be evaluated for this. Patient is tearful.. 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 - Infectious Disease History:: Denies. - Social history:: Smoking status: Patient denies any tobacco usage or history of. ROS: 16:03 Constitutional: as per hpi ec2 Exam: 16:03 Constitutional: GEN: NAD Head: atraumatic Eyes: EOMI Ears: External ears are ec2 normal. CV: regular rate LUNGS: no respiratory distress ABD: non-distended SKIN: no evidence of rashes MSK: no evidence of trauma. Psych: Anxious individual who is tearful and otherwise cooperative Vital Signs: 15:55 BP 128 / 91; Pulse 94; Resp 18; Temp 97.8; Pulse Ox 100% on R/A; Weight 90.72 kg; hb Height 5 ft. 4 in. ; Pain 8/10; 18:06 BP 121 / 90; Pulse 86; Resp 14; Pulse Ox 99% ; rs6 19:32 BP 133 / 91; Pulse 77; Resp 16; Pulse Ox 99% on R/A; al5 15:55 Body Mass Index 34.33 (90.72 kg, 162.56 cm) hb 15:55 Pain Scale: Adult hb MDM: 16:03 Medical Screening Exam initiated ec2 16:03 Data reviewed: vital signs, nurses notes. ED course: Patient arrives today for ec2 evaluation of an anxious individual with complaints of chest tightness. Examination is unrevealing. Will obtain cardiac workup. Suspect anxiety, doubt ACS, doubt PE, dissection. 18:02 ED course: EKG independently reviewed and interpreted by me, shows normal sinus rhythm, ec2 rate of 82, no acute ST segment elevations, intervals are nonactionable.. 18:45 ED course: Labs are remarkable for hypokalemia with potassium of 3.1. Will give the ec2 patient potassium. Will discharge home. Return precautions given. Consistent with anxiety/panic attack secondary to stressor.. 02/03 16:00 Order name: Basic Metabolic Panel; Complete Time: 18:44 ec2 / 16:00 Order name: CBC with Diff; Complete Time: 18:04 ec2 05/28 16:00 Order name: NT PRO-BNP; Complete Time: 18:44 ec2 05/28 16:00 Order name: PT-INR; Complete Time: 18:26 ec2 05/28 16:00 Order name: Troponin HS; Complete Time: 18:44 ec2 05/28 16:00 Order name: XRAY Chest (1 view); Complete Time: 16:44 ec2 05/28 16:00 Order name: Cardiac monitoring; Complete Time: 17:51 ec2 05/28 16:00 Order name: EKG - Nurse/Tech; Complete Time: 18:02 ec2 05/28 16:00 Order name: IV Saline Lock; Complete Time: 17:57 ec2 05/28 16:00 Order name: Labs collected and sent; Complete Time: 17:57 ec2 05/28 16:00 Order name: O2 Per Protocol; Complete Time: 17:51 ec2 05/28 16:00 Order name: O2 Sat Monitoring; Complete Time: 17:51 ec2 Administered Medications: 17:45 Drug: Diazepam IVP 5 mg IVP once Route: IVP; Site: right antecubital; bp 19:28 Follow up: Response: No adverse reaction; Anxiety decreased al5 19:28 Drug: Potassium Chloride PO 40 mEq PO once Route: PO; al5 19:28 Follow up: Response: No adverse reaction; Medication administered at discharge. al5 Disposition Summary: 05/28/24 18:45 Discharge Ordered Notes: Location: Home ec2 Condition: Stable ec2 Diagnosis - Anxiety disorder, unspecified ec2 - Hypokalemia ec2 Followup: ec2 - With: Private Physician - When: - Reason: Re-evaluation by your physician Discharge Instructions: - Discharge Summary Sheet ec2 - Panic Attack, [id number] ec2 Forms: - Medication Reconciliation Form ec2 - Antibiotic Education ec2 - Prescription Opioid Use ec2 - Patient Portal Instructions ec2 - Leadership Thank You Letter ec2 Prescriptions: - Hydroxyzine HCl 50 mg Oral Tablet - take 1 tablet ORAL route every 8 hours As needed; 20 tablet; Refills: 0, ec2 Product Selection Permitted Signatures: Dispatcher [employer] EDMegan Borjas RN RN Frnatz Gonzalez RN RN Ponce Hopkins MD MD ec2 Andie Plasencia RN RN al5
--- NOTE | 2024-05-28 18:46 | ER ---
Nurse's Notes [facility] Name: Grisel Jhaveri Age: 53 yrs Sex: Female : 1970 Arrival Date: 05/28/2024 Time: 15:39 Bed 8 Private MD: Diagnosis: Anxiety disorder, unspecified;Hypokalemia Presentation: 05/28 15:55 Chief complaint: EMS states: Toned out for panic attack after argument with family. Pt hb tearful in triage due to "family issues" c/o chest tightness since last night. Coronavirus screen: At this time, the client does not indicate any symptoms associated with coronavirus-19. Ebola Screen: No symptoms or risks identified at this time. Initial Sepsis Screen: Does the patient meet any 2 criteria? No. Patient's initial sepsis screen is negative. Does the patient have a suspected source of infection? No. Patient's initial sepsis screen is negative. Risk Assessment: Do you want to hurt yourself or someone else? Patient reports no desire to harm self or others. Onset of symptoms was May 27, 2024. 15:55 Method Of Arrival: EMS: [facility] 15:55 Acuity: ERIKA 3 hb Triage Assessment: 17:15 General: Appears distressed, Behavior is cooperative, appropriate for age, anxious. bp Pain: Complains of pain in chest. EENT: No deficits noted. Neuro: No deficits noted. Cardiovascular: Rhythm is sinus rhythm. Respiratory: No deficits noted. GI: No signs and/or symptoms were reported involving the gastrointestinal system. : No signs and/or symptoms were reported regarding the genitourinary system. Derm: No deficits noted. Musculoskeletal: No deficits noted. 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 - Infectious Disease History:: Denies. - Social history:: Smoking status: Patient denies any tobacco usage or history of. Screenin:30 [facility] ED Fall Risk Assessment (Adult) History of falling in the last 3 months, bp including since admission No falls in past 3 months (0 pts) Confusion or Disorientation No (0 pts) Intoxicated or Sedated No (0 pts) Impaired Gait No (0 pts) Mobility Assist Device Used No (0 pt) Altered Elimination No (0 pt) Score/Fall Risk Level 0 - 2 = Low Risk Oriented to surroundings. Abuse screen: Denies threats or abuse. Denies injuries from another. Nutritional screening: No deficits noted. Tuberculosis screening: No symptoms or risk factors identified. Assessment: 17:15 General: Appears distressed, Behavior is cooperative, appropriate for age, agitated, bp anxious. Pain: Denies pain. Neuro: Level of Consciousness is awake, alert, obeys commands, Oriented to Appropriate for age. Cardiovascular: Rhythm is sinus rhythm. Respiratory: No deficits noted. GI: No deficits noted. : No signs and/or symptoms were reported regarding the genitourinary system. EENT: No deficits noted. Derm: No deficits noted. Musculoskeletal: No signs and/or symptoms reported regarding the musculoskeletal system. 19:31 General: Appears in no apparent distress. comfortable, Behavior is calm, cooperative. al5 Pain: Denies pain. Neuro: Level of Consciousness is awake, alert, obeys commands, Oriented to person, place, time, situation. Cardiovascular: Capillary refill < 3 seconds Patient's skin is warm and dry. Respiratory: Airway is patent Respiratory effort is even, unlabored, Respiratory pattern is regular, symmetrical. GI: No deficits noted. No signs and/or symptoms were reported involving the gastrointestinal system. : No deficits noted. No signs and/or symptoms were reported regarding the genitourinary system. EENT: No deficits noted. No signs and/or symptoms were reported regarding the EENT system. Derm: Skin is intact, is healthy with good turgor, Skin is pink, warm \\T\\ dry. normal. Musculoskeletal: No deficits noted. No signs and/or symptoms reported regarding the musculoskeletal system. Vital Signs: 15:55 BP 128 / 91; Pulse 94; Resp 18; Temp 97.8; Pulse Ox 100% on R/A; Weight 90.72 kg; hb Height 5 ft. 4 in. ; Pain 8/10; 18:06 BP 121 / 90; Pulse 86; Resp 14; Pulse Ox 99% ; rs6 19:32 BP 133 / 91; Pulse 77; Resp 16; Pulse Ox 99% on R/A; al5 15:55 Body Mass Index 34.33 (90.72 kg, 162.56 cm) hb 15:55 Pain Scale: Adult hb ED Course: 15:41 Patient arrived in ED. im 15:43 Ponce Osborne MD is Attending Physician. ec2 15:57 Triage completed. hb 15:58 Arm band placed on. hb 16:23 XRAY Chest (1 view) In Process Unspecified. EDMS 17:15 Frantz Gonzalez, RN is Primary Nurse. bp 17:21 Patient placed in an exam room, on a stretcher. ll1 17:21 Warm blanket given. ll1 17:30 Patient has correct armband on for positive identification. bp 17:45 Initial lab(s) drawn, by me, sent to lab. EKG done, by ED staff, reviewed by Ponce Osborne MD. Inserted saline lock: 20 gauge in right antecubital area, using aseptic technique. Blood collected. Flushed with 10 mL NS. 19:32 No provider procedures requiring assistance completed. IV discontinued, intact, al5 bleeding controlled, No redness/swelling at site. Pressure dressing applied. 19:33 Provided Education on: discharge follow up, medications. al5 Administered Medications: 17:45 Drug: Diazepam IVP 5 mg IVP once Route: IVP; Site: right antecubital; bp 19:28 Follow up: Response: No adverse reaction; Anxiety decreased al5 19:28 Drug: Potassium Chloride PO 40 mEq PO once Route: PO; al5 19:28 Follow up: Response: No adverse reaction; Medication administered at discharge. al5 Medication: 19:32 VIS not applicable for this client. al5 Outcome: 18:45 Discharge ordered by . ec2 19:33 Discharged to home ambulatory, with family, al5 19:33 Condition: good 19:33 Discharge instructions given to patient, Instructed on discharge instructions, follow up and referral plans. medication usage, Demonstrated understanding of instructions, follow-up care, medications, Prescriptions given X 1, 19:33 Patient left the ED. al5 Signatures: Dispatcher [employer] EDNJ Megan Garner RN RN Frantz Gonzalez, RN RN Burton Ramos RN RN ll1 Deirdre Mason Ponce Osborne MD MD ec2 Andie Plasencia RN RN al5 Martínez Castillo rs6 Corrections: (The following items were deleted from the chart) 15:58 15:55 Chief complaint: EMS states: Anxiety after fight with family. Pt tearful in hb triage due to "family issues" c/o chest tightness since last night hb
[2024-05-28] MEDS ORDERED: POTASSIUM CL SA 10 MEQ TAB PO ONE (19:23)
[2024-05-28 19:39] VITALS: TEMP 97.8
[2024-05-28 19:40] VITALS: O2SAT 99
[2024-05-28 19:41] VITALS: BP 133/91
--- NOTE | 2024-05-29 12:12 | EKG ---
Test Date: 2024-05-28 Test Time: 17:58:11 Wood Sawyer: CHELSEA MEASUREMENT RESULTS: Intervals: Rate: 82 WA: 152 QRSD: 96 QT: 386 QTc: 450 [place]: P: 11 WA: 152 QRS: -25 T: 9 INTERPRETIVE STATEMENTS: Normal sinus rhythm Septal infarct, age undetermined Abnormal ECG No previous ECG available for comparison Electronically Signed On 05-29-24 12:10:28 BUCKLE COVERER by Saman Shipman
== END 2024-05-28 19:33 | disposition home or self-care (01) ==
LOC: ER 15:39
DX: F41.9 Anxiety disorder, unspecified (principal); E87.6 Hypokalemia
CPT/HCPCS: 85025; 80048; 36415; 85610; 84484; 83880; 71045; J3360; 93005